=== PATIENT | female | born 1975 | race Caucasian/White ===

== ENCOUNTER 2018-09-12 06:27 | Emergency (ER) | payer BC ==
[2018-09-12] MEDS ORDERED: Azithromycin 250 MG Tab PO ONE (06:59)
--- NOTE | 2018-09-12 07:03 | EDM.PDOC ---
ED HPI GENERAL MEDICAL PROBLEM - General Chief Complaint: ENT Problem Stated Complaint: STREP THROAT Time Seen by Provider: 09/12/18 07:00 Source of Information: Reports: Patient History Limitations: Reports: No Limitations - History of Present Illness INITIAL COMMENTS - FREE TEXT/NARRATIVE: Dx with strep 2 days ago, Tx with amox which doesn't work as well as z-leanne. 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 ED EXAM, ENT - Physical Exam Exam: See Below Exam Limited By: No Limitations General Appearance: Alert, WD/WN, Mild Distress, Other (discomfort) Ears: Hearing Grossly Normal Mouth/Throat: Pharyngeal Erythema, Tonsillar Erythema, Tonsillar Exudates, Tonsillar Swelling Head: Atraumatic Neck: Supple, Non-Tender Respiratory/Chest: No Respiratory Distress Cardiovascular: Regular Rate, Rhythm GI/Abdominal: Soft, Non-Tender Neurological: Alert, Oriented, Normal Cognition, Normal Gait, No Motor/Sensory Deficits Psychiatric: Tearful Skin: Warm, Dry, Normal Color Lymphatic: No Adenopathy Course - Vital Signs Last Recorded V/S: Last Vital Signs Temp 36.6 C 09/12/18 06:36 Pulse 108 H 09/12/18 06:36 Resp 22 H 09/12/18 06:36 BP 130/84 09/12/18 06:36 Pulse Ox 97 09/12/18 06:36 - Orders/Labs/Meds Orders: Active Orders 24 hr Category Date Time Status Azithromycin [Zithromax] Med 09/12/18 06:59 Once 500 mg PO ONETIME ONE Medication Orders Azithromycin (Zithromax) 500 mg PO ONETIME ONE Stop: 09/12/18 07:00 Meds: Medications Generic Name Dose Route Start Last Admin Trade Name Live PRN Reason Stop Dose Admin Azithromycin 500 mg 09/12/18 06:59 Zithromax PO 09/12/18 07:00 ONETIME ONE Departure - Departure Time of Disposition: 07:02 Disposition: Home, Self-Care 01 Condition: Good Clinical Impression: Strep tonsillitis - Discharge Information Instructions: Strep Throat, [id number] Additional Instructions: 1) avoid solid foods 2) have popsicle, jello, juice, smoothies 3) recheck as needed rx given; z-leanne - My Orders Last 24 Hours: My Active Orders 09/12/18 06:59 Azithromycin [Zithromax] 500 mg PO ONETIME ONE - Assessment/Plan Last 24 Hours: My Active Orders 09/12/18 06:59 Azithromycin [Zithromax] 500 mg PO ONETIME ONE
== END 2018-09-12 07:10 | disposition home or self-care (01) ==
LOC: DL.ED 06:27 → MERGE 06:27 → DL.ED 07:10
DX: J03.00 Acute streptococcal tonsillitis, unspecified (principal); I10 Essential (primary) hypertension; Z87.891 Personal history of nicotine dependence
CPT/HCPCS: 99282; A9270

== ENCOUNTER 2024-09-30 18:45 | Emergency (ER) | payer BC ==
[2024-09-30] MEDS ORDERED: Sodium Chloride 0.9% 10 ML Syringe FLUSH PRN (19:19)
[2024-09-30] MEDS: Iopamidol 612 MG/ML 100 ML Bottle IVPUSH ONE (19:29)
[2024-09-30 19:34] LABS: BASOPHILS PERCENT AUTO 0.2 % (0.0-1.0); EOSINOPHILS PERCENT AUTO 1.4 % (1.0-3.0); HEMOGLOBIN 11.7 g/dL (12.0-16.0); LYMPHOCYTES PERCENT AUTO 10.1 % (20.5-50.1); MEAN CORPUSCULAR HEMOGLOBIN 28.7 pg (27.0-34.0); MEAN CORPUSCULAR HGB CONC 31.6 g/dL (33.0-35.0); MEAN CORPUSCULAR VOLUME 90.9 fL (80-100); NEUTROPHILS PERCENT AUTO 80.3 % (42.2-75.2); PLATELET COUNT,PLT 103 10^3/uL (150-450); RED BLOOD CELL COUNT 4.07 10^6/uL (4.2-5.4); WHITE BLOOD CELL COUNT,WBC 5.1 10^3/uL (5.0-10.0)
[2024-09-30 19:46] LABS: APPEARANCE,URINE SLIGHTLY CLOUDY (CLEAR); BILIRUBIN,URINE NEGATIVE (NEGATIVE); COLOR,URINE DARK YELLOW (YELLOW); GLUCOSE,URINE NEGATIVE (NEGATIVE); KETONES,URINE NEGATIVE (NEGATIVE); LEUKOCYTE ESTERASE,URINE TRACE (NEGATIVE); NITRITE,URINE NEGATIVE (NEGATIVE); OCCULT BLOOD,URINE NEGATIVE (NEGATIVE); PROTEIN,URINE 30 (NEGATIVE)
[2024-09-30 19:55] LABS: RBC,URINE 0-5 /HPF (0-5); WBC,URINE 20-30 /HPF (0-5/HPF)
[2024-09-30 19:56] LABS: BACTERIA,URINE FEW /HPF (0-FEW/HPF); EPITHELIAL CELLS,URINE MODERATE /HPF (NOT SEEN); MUCUS,URINE MANY /LPF (NOT SEEN)
[2024-09-30 19:59] LABS: A/G RATIO 0.9; ALANINE AMINOTRANSFERASE,ALT 122 U/L (14-59); ALBUMIN 3.7 g/dL (3.4-5.0); ALKALINE PHOSPHATASE 424 U/L (46-116); ANION GAP 10.4 mEq/L (7-13); ASPARTATE AMNIOTRANSFERASE,AST 102 U/L (15-37); BILIRUBIN TOTAL 0.7 mg/dL (0.2-1.0); BLOOD UREA NITROGEN,BUN 20 mg/dL (7-18); C-REACTIVE PROTEIN 2.05 ng/dL (<=0.50); CALCIUM 9.4 mg/dL (8.5-10.1); CARBON DIOXIDE,CO2 28 mmol/L (21-32); CHLORIDE,CL 103 mmol/L (98-107); EST CRCL DRUG DOSING (CG) 55.68 mL/min; GLUCOSE RANDOM 150 mg/dL (70-99); LIPASE 29 U/L (16-77); POTASSIUM,K 3.4 mmol/L (3.5-5.1); PROTEIN TOTAL,TP 7.9 g/dL (6.4-8.2); SODIUM,NA 138 mmol/L (136-145)
[2024-09-30 20:02] LABS: ESTIMATED GFR 69 mL/min (>=60); LACTIC ACID 2.7 mmol/L (0.4-2.0)
[2024-09-30 20:08] LABS: PROTHROMBIN TIME 10.6 SEC (9.0-12.0); PTT,PARTIAL THROMBOPLSTIN TIME 23.7 SEC (22.0-34.0)
[2024-09-30] MEDS: Piperacillin/Tazobactam 4.5 GM in Sodium Chloride 0.9% 100 ML IV ONE (21:28)
== END 2024-09-30 22:04 ==
LOC: DL.ED 18:45
DX: K29.81 Duodenitis with bleeding (principal); C22.9 Malignant neoplasm of liver, not specified as primary or secondary; I10 Essential (primary) hypertension; Z88.8 Allergy status to other drugs, medicaments and biological substances; Z79.899 Other long term (current) drug therapy
CPT/HCPCS: 36415; 74177; 80053; 81001; 82272; 83605; 83690; 84484; 85025; 85610; 85730; 86140; 87040; 87086; 96365; 99285; J2543; Q9967

== ENCOUNTER 2024-12-15 11:08 | Emergency (ER) | payer BC ==
[2024-12-15] MEDS ORDERED: Sodium Chloride 0.9% 10 ML Syringe FLUSH PRN (11:38)
[2024-12-15 12:16] LABS: BASOPHILS PERCENT AUTO 0.2 % (0.0-1.0); EOSINOPHILS PERCENT AUTO 1.3 % (1.0-3.0); HEMATOCRIT 28.6 % (37.0-47.0); HEMOGLOBIN 9.1 g/dL (12.0-16.0); LYMPHOCYTES PERCENT AUTO 12.9 % (20.5-50.1); MEAN CORPUSCULAR HEMOGLOBIN 27.1 pg (27.0-34.0); MEAN CORPUSCULAR HGB CONC 31.8 g/dL (33.0-35.0); MEAN CORPUSCULAR VOLUME 85.1 fL (80-100); MONOCYTES PERCENT AUTO 12.3 % (2-8); NEUTROPHILS PERCENT AUTO 73.3 % (42.2-75.2); PLATELET COUNT,PLT 118 10^3/uL (150-450); RED BLOOD CELL COUNT 3.36 10^6/uL (4.2-5.4); WHITE BLOOD CELL COUNT,WBC 5.2 10^3/uL (5.0-10.0)
[2024-12-15 12:39] LABS: PROTHROMBIN TIME 10.5 SEC (9.0-12.0); PTT,PARTIAL THROMBOPLSTIN TIME 24.3 SEC (22.0-34.0)
[2024-12-15 12:41] LABS: LACTIC ACID 0.8 mmol/L (0.4-2.0)
[2024-12-15 13:04] LABS: ALBUMIN 3.1 g/dL (3.4-5.0); ANION GAP 13.9 mEq/L (7-13); BILIRUBIN TOTAL 0.7 mg/dL (0.2-1.0); BUN/CREATININE RATIO 16.8 (No establ ref range); C-REACTIVE PROTEIN 1.53 ng/dL (<=0.50); CALCIUM 9.4 mg/dL (8.5-10.1); CREATININE 1.13 mg/dL (0.55-1.02); EST CRCL DRUG DOSING (CG) 47.11 mL/min; MAGNESIUM 1.8 mg/dL (1.8-2.4); POTASSIUM,K 3.9 mmol/L (3.5-5.1); PROTEIN TOTAL,TP 7.3 g/dL (6.4-8.2); TSH ULTRASENSITIVE 2.26 uIU/mL (0.36-3.74)
[2024-12-15 13:10] LABS: A/G RATIO 0.74
[2024-12-15] MEDS: Iopamidol 612 MG/ML 100 ML Bottle IVPUSH ONE (13:30)
== END 2024-12-15 15:39 | disposition home or self-care (01) ==
LOC: DL.ED 11:08
DX: C22.9 Malignant neoplasm of liver, not specified as primary or secondary (principal); C79.9 Secondary malignant neoplasm of unspecified site; I10 Essential (primary) hypertension; Z79.899 Other long term (current) drug therapy; Z88.5 Allergy status to narcotic agent; Z88.8 Allergy status to other drugs, medicaments and biological substances
CPT/HCPCS: 36415; 70450; 71260; 74177; 80053; 82140; 82607; 83605; 83735; 84443; 85025; 85610; 85730; 86140; 99285; J1642; Q9967

== ENCOUNTER 2025-02-17 11:52 | Emergency (ER) | payer BC, OTHER ==
[2025-02-17 12:30] LABS: BASOPHILS PERCENT AUTO 0.3 % (0.0-1.0); EOSINOPHILS PERCENT AUTO 2.3 % (1.0-3.0); LYMPHOCYTES PERCENT AUTO 13.0 % (20.5-50.1); MONOCYTES PERCENT AUTO 16.3 % (2-8); NEUTROPHILS PERCENT AUTO 68.1 % (42.2-75.2); PLATELET COUNT,PLT 81 10^3/uL (150-450); RED BLOOD CELL COUNT 3.83 10^6/uL (4.2-5.4); WHITE BLOOD CELL COUNT,WBC 3.9 10^3/uL (5.0-10.0)
[2025-02-17 12:47] LABS: INR 1.1 (0.9-1.2); PTT,PARTIAL THROMBOPLSTIN TIME 23.7 SEC (22.0-34.0)
[2025-02-17 12:50] LABS: A/G RATIO 0.72; ALANINE AMINOTRANSFERASE,ALT 44.0 U/L (14-59); ASPARTATE AMNIOTRANSFERASE,AST 52.0 U/L (15-37); BILIRUBIN TOTAL 1.2 mg/dL (0.2-1.0); BLOOD UREA NITROGEN,BUN 21.0 mg/dL (7-18); CARBON DIOXIDE,CO2 26.0 mmol/L (21-32); CHLORIDE,CL 106.0 mmol/L (98-107); CREATININE 0.88 mg/dL (0.55-1.02); EST CRCL DRUG DOSING (CG) 63.27 mL/min; ESTIMATED GFR 80.0 mL/min (>=60); GLUCOSE RANDOM 111.0 mg/dL (70-99); POTASSIUM,K 3.9 mmol/L (3.5-5.1); PROTEIN TOTAL,TP 6.7 g/dL (6.4-8.2); SODIUM,NA 142.0 mmol/L (136-145)
[2025-02-17 12:52] LABS: LACTIC ACID 0.9 mmol/L (0.4-2.0)
[2025-02-17] MEDS: Lactulose Soln 10 GM/15 ML 30 ML UD Cup PO ONE (14:07)
[2025-02-17 14:48] LABS: APPEARANCE,URINE CLEAR (CLEAR); GLUCOSE,URINE NEGATIVE (NEGATIVE); OCCULT BLOOD,URINE NEGATIVE (NEGATIVE)
== END 2025-02-17 15:17 | disposition home or self-care (01) ==
LOC: DL.ED 11:52
DX: I95.1 Orthostatic hypotension (principal); K76.82 Hepatic encephalopathy; I10 Essential (primary) hypertension; Z88.8 Allergy status to other drugs, medicaments and biological substances; Z79.899 Other long term (current) drug therapy
CPT/HCPCS: 36415; 70450; 71045; 80053; 81003; 82140; 83605; 83735; 85025; 85610; 85730; 86140; 99285; A9270; J1642